=== PATIENT | male | born 2000 | race African-American/Black ===

== ENCOUNTER 2020-12-24 06:07 | Emergency (ER) | payer SELFPAY ==
[~2020-12-24] VITALS: Ht 177.8 cm; Wt 63.5 kg
[2020-12-24 06:07] VITALS: BP 141/88
[2020-12-24] MEDS ORDERED: HYDR-4303 PO ×2 (06:24→06:34)
[2020-12-24] MEDS ORDERED: AMOX500T2 PO (06:24)
== END 2020-12-24 06:37 | disposition home or self-care (01) ==
LOC: ER 06:12
DX: K08.89 Other specified disorders of teeth and supporting structures (principal)